=== PATIENT | male | born 1990 | race Hispanic/Latino ===

== ENCOUNTER 2023-05-20 01:18 | Emergency (ER) | payer SELFPAY ==
[2023-05-20 03:30] VITALS: BP 135/75
== END 2023-05-20 06:31 | disposition home or self-care (01) | DRG 563 ==
LOC: ED 01:18
PROC: 0RSJXZZ Reposition Right Shoulder Joint, External Approach (ICD-10-PCS; principal; 2023-05-20)
DX: S43.014A Anterior dislocation of right humerus, initial encounter (principal); W01.0XXA Fall on same level from slipping, tripping and stumbling without subsequent striking against object, initial encounter; Y92.9 Unspecified place or not applicable